=== PATIENT | male | born 1995 | race Caucasian/White ===

== ENCOUNTER 2020-06-13 07:32 | Emergency (ER) | payer OTHER, SELFPAY ==
[2020-06-13] MEDS ORDERED: Lidocaine 1% w/Epinephrine 1:100K 20 ML VIAL ONE (07:47)
[2020-06-13] MEDS ORDERED: Boostrix 0.5 ML VIAL ONE (07:54)
[2020-06-13] MEDS ORDERED: Triple Antibiotic Oint 1 GM Packet ONE (08:38)
== END 2020-06-13 08:55 | disposition home or self-care (01) ==
LOC: MADERS 07:32
DX: S61.412A Laceration without foreign body of left hand, initial encounter (principal); W26.0XXA Contact with knife, initial encounter
CPT/HCPCS: 12001; 90471; 90715

== ENCOUNTER 2022-11-05 23:48 | Emergency (ER) | payer OTHER, SELFPAY ==
[2022-11-06] MEDS ORDERED: Ketorolac Tromethamine 30 MG/ML VIAL ONE (00:45)
[2022-11-06 01:16] LABS: #Basophils 0.1 thou/uL (0.0-0.2); #Eosinphils 0.1 thou/uL (0.0-0.7); #Lymphocytes 2.8 thou/uL (1.20-3.40); #Monocytes 0.8 thou/uL (0.11-0.59); #Neutrophils 6.7 thou/uL (1.40-6.50); %Basophils 1.2 % (0.0-1.0); %Eosinophils 1.2 % (0.0-10.0); %Lymphocytes 26.7 % (21.0-51.0); Hemoglobin 14.9 g/dL (14.0-18.0); Mean Corpuscular HGB CONC 35.3 g/dL (32.0-36.0); Mean Corpuscular Hemoglobin 31.3 pg (27.0-31.0); Mean Corpuscular Volume 88.6 fl (78.0-98.0); Mean Platelet Volume 7.4 fL (7.4-10.4); Platelet Count 291 10x3/uL (130-400); RBC Distribution Width 11.6 % (11.5-14.5); Red Blood Cell (RBC) Count 4.75 mill/uL (4.70-6.10); White Blood Cell (WBC) Count 10.6 10x3/uL (4.8-10.8)
[2022-11-06] MEDS ORDERED: Dexamethasone 4 MG TAB ONE (01:24)
[2022-11-06 01:34] LABS: ALT (SGPT) 89 U/L (8-55); AST (SGOT) 61 U/L (5-34); Albumin 4.6 g/dL (3.5-5.0); Alkaline Phosphatase 87 U/L (40-110); Anion Gap 14 mmol/L (10-20); BUN (Urea Nitrogen) 11 mg/dL (8.9-20.6); Bilirubin, Total 0.6 mg/dL (0.2-1.2); Calc. Creatinine Clearance 0 mL/min (70-130); Calcium 9.5 mg/dL (7.8-10.44); Chloride 108 mmol/L (98-107); Estimated GFR 113; Globulin 2.7 g/dL (2.4-3.5); Glucose 111 mg/dL (70-105); Protein, Total 7.3 g/dL (6.0-8.3); Sodium 140 mmol/L (136-145); Uric Acid 9.9 mg/dL (3.5-7.2)
[2022-11-06 01:47] LABS: Carbon Dioxide 22 mmol/L (22-29)
[2022-11-06] MEDS ORDERED: Morphine 10 MG/ML VIAL ONE (02:06)
[2022-11-06] MEDS ORDERED: Ondansetron PF 4 MG/2 ML Vial ONE (02:09)
[2022-11-06] MEDS ORDERED: Colchicine 0.6 MG TAB ONE ×2 (02:09→03:05)
[2022-11-06] MEDS ORDERED: Morphine 4 MG/ML VIAL ONE (03:16)
== END 2022-11-06 03:34 | disposition home or self-care (01) ==
LOC: MADERS 23:48
DX: R74.01 Elevation of levels of liver transaminase levels (principal)
CPT/HCPCS: 80053; 84550; 85025; 86140; 96374; 96375; 96376; J1885; J2270; J2405; J8540